=== PATIENT | female | born 2005 | race Caucasian/White ===

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

== ENCOUNTER 2024-11-23 13:02 | Emergency (ER) | payer OTHER, SELFPAY ==
--- NOTE | ~2024-11-23 | XR_ITS ---
EXAMINATION: XR ankle RT min 3V, 11/23/2024 13:00 CDT HISTORY: injury today, lateral. COMPARISON: No comparisons available. Findings: No acute fracture or malalignment. No significant degenerative changes. Soft tissues unremarkable. Impression: No acute fracture or malalignment. Reviewed, dictated and finalized at location A. Impression: No acute fracture or malalignment.
[2024-11-23 13:08] VITALS: BP 153/77; PULSE 86; RESP 20; TEMP 36.8; O2SAT 100
--- OUTSIDE RECORDS SUMMARY | 2024-11-23 13:28 | XMS_ITS | Clinical Summary ---
Author Organization [address] Address [address] [place] [facility] [address] Care Team Providers Care Window Sash Installer Name Role Phone Unknown, Notinfile Primary Care Provider Unavail able Eddi Avila MD Unavailable [phone] Allergies Active Allergy Reactions Criticality Noted Date Comments Penicillins Rash Medium 05/04/2019 Medications imiquimod (ALDARA) 5 % cream Apply topically 3 (three) times a week. Wash hands prior to and following application. 12 packet 8 Active norethindrone ac-eth estradioL (MICROGESTIN 03/23) 1-20 mg-mcg per tablet Take 1 tablet by mouth daily Active Active Problems Problem Noted Date Diagnosed Date Strain of left shoulder 06/13/2021 Anxiety 04/10/2019 Plantar wart 12/30/2017 Encounter for routine child health examination without abnormal findings 10/04/2017 Acute suppurative otitis med ia of left ear without spontaneous rupture of tympanic membrane 01/28/2017 Bronchospasm 07/13/2016 Overview (07/27/2016): Bronchospasm Immunizations Immunization Administration Dates Next Due DTaP 2003,2003,2003 DTaP 5 Pertussis 11/25/2007,04/13/2004 HPV, Quadrivalent 04/22/2015,12/20/2014,10/21/19 15 Hep B, Adolescent or Pediatric 2003,2002,2003 HiB 04/13/2004, 4,2003, 004 IPV 11/25/2007, 5,2003, 004 MMR 11/25/2007,01/14/2004 Meningococcal Conjugate (Menveo) 12/08/2020 Meningococcal MCV4P (Menactra) 10/20/2014 Pneumococcal Conjugate, Unspecified 04/04,01/14/2004,2003, 004 Tdap 10/20/2014 Varicella 11/25/2007,01/14/2004 Family History Medical History Relation Name Comments Psoriasis Mother Family history of psoriasis - (Added by TW Conv) Relation Name Status Comments Mother Social History Tobacco Use Types Packs/Day Years Used Date Smoking Tobacco: Never Smokeless Tobacco: Never Tobacco Cessation:Counseling Given: Not Answered Comments Unknown Sex and Gender Information Value Date Recorded Sex Assigned at Not on file Legal Sex Female 10:09 AM MICROARRAY ANALYST Gender Identity Not on file Sexual Orientation Not on file Obstetrics History Last Filed Vital Signs Vital Sign Reading Time Taken Comments Blood Pressure 92/64 02/05/2022 6:39 PM MICROARRAY ANALYST Pulse 75 02/05/2022 6:39 PM MICROARRAY ANALYST Temperature 36.4 C (97.6 F) 02/05/2022 6:39 PM MICROARRAY ANALYST Respiratory Rate 16 02/05/2022 6:39 PM MICROARRAY ANALYST Oxygen Saturation 98% 02/05/2022 6:39 PM MICROARRAY ANALYST Inhaled Oxygen Concentration - - Weight 62.6 kg (138 lb) 02/05/2022 6:39 PM MICROARRAY ANALYST Height 175.3 cm (5' 9) 02/05/2022 6:39 PM MICROARRAY ANALYST Body Mass Index 20.38 02/05/2022 6:39 PM MICROARRAY ANALYST Plan of Treatment Health Maintenance Due Date Last Done Comments Cervical Cancer Screening 2003 Depression Screening 2003 Hepatitis C Screening 2003 Meningococcal B Vaccine (1 o f 2 - Standard) 2019 Regular Well Visit/Exam 18-64 01/24/2022 01/24/2021 DTaP/Tdap/Td Vaccine (7 - Td or Tdap) 10/20/2024 10/20/2014, 11/25/2007, 04/13/2004, Additional history exists Covid-19 Vaccine (4 - 2024-2 6 season) 2024 03/12/2021, 07/05/2020, 06/12/2020 Influenza Vaccine (#1) 2024 Hepatitis B Screening Completed 2003 , 2003, 2003 Pneumococcal vaccine <65 Completed 005, 01/14/2004, 2003, Additional history exists Varicella Vaccines Completed 11/25/2007, 01/14/2004 HPV Vaccines Completed 04/22/2015, 12/02, 10/20/2014 Meningococcal Vaccine Completed 12/08/2020, 015 Insurance [employer] Care Teams Window Sash Installer Relationship Specialty Start Date End Date Unknown, Notinfile PCP - General 02/05/22 Eddi Avila MD [address] [address] 02/05/22
--- OUTSIDE RECORDS SUMMARY | 2024-11-23 13:28 | XMS_ITS | Clinical Summary ---
Author Organization [facility] [employer] [place] Address [address] [address] Care Team Providers Care Deputy Administrator Name Role Phone Unavailable Primary Care Provider Unavailabl e Allergies Active Allergy Reactions Criticality Noted Date Comments Penicillins Rash Low 05/04/2019 Medications 1.5, 21, 1.5-30 mg-mcg tablet Take 1 Tablet by mouth daily. 03/17/2022 Active sertraline (ZOLOFT) 50 mg tabletIndication s:Mixed anxiety and depressive disorder Take 1 Tablet (50 mg) by mouth daily. 90 Tablet 3 08/26/2024 Active Active Problems Problem Noted Date Diagnosed Date Mixed anxiety and depressive disorder 06/19/2022 Encounters Date Type Department Care Team Description 11/17/2024 External Device Data [facility] Provider, Abstract 09/16/2024 External Device Data [facility] Provider, Abstract 09/16/2024 External Device Data [facility] Provider, Abstract 09/16/2024 External Device Data [facility] Provider, Abstract 09/15/2024 External Device Data [facility] Provider, Abstract 09/09/2024 Refill [facility] [place] [address] [place] [address] Karlee Hoang MD Mixed anxiety and depressive disorder 09/01/2024 External Device Data [facility] Provider, Abstract 08/26/2024 9:30 AM CDT Office Visit [facility] [place] [address] [place] [address] Karlee Hoang MD Mixed anxiety and depressive disorder from Last 3 Months Immunizations Immunization Administration Dates Next Due (ADACEL/BOOSTRIX)(10 YR UP) TDAP VACCINE, 0.5ML, IM 10/20/2014 (DAPTACEL)(6 WKS-6 YRS) DIPH THERIA, TETANUS TOXOIDS, AND ACCELLULAR PERTUSSIS VACCINE (DTAP), 0.5ML, IM 11/25/2007,04/13/2004 (GARDASIL)(9-45 YRS) HUMAN PAPILLOMAVIRUS VACCINE, TYPES 6, 11, 16, 18, QUADRIVALENT (4VHPV), 3 DOSE, IM 04/22/2015,12/20/2014,10/20/2014 (INFANRIX)(6 WKS-6 YRS) DIPT HERIA, TETANUS TOXOIDS, AND ACCELLULAR PERTUSSIS VACCINE (DTAP), 0.5 ML IM 2003,2003,2003 (IPOL)(6 WKS AND UP) POLIOVI MÓNICA VACCINE, INACTIVATED (IPV), 3 DOSE, SUBCUT OR IM 11/25/2007,04/13/2004,2003,03/04 (M-M-R II/PRIORIX)(12 MO UP) MEASLES, MUMPS AND RUBELLA VIRUS VACCINE, 0.5 ML IM/SUBCUT 11/25/2007,01/14/2004 (MENVEO)(1 VIAL/2 VIAL)(10-5 5 YRS/2 MOS-55 YRS) MENINGOCOCCAL ACYW OLIGOSACCHARIDE CONJUGATE VACCINE, (PF) IM 12/08/2020 (RECOMBIVAX HB/ENGERIX-B)(0- 19 YRS) HEPATITIS B VACCINE 5 MCG/0.5 ML OR 10 MCG/0.5 ML PED OR ADOL 3 DOSE (PF), IM 2003,2003,2003 (VARIVAX)(12 MOS UP)VARICELL A VIRUS VACCINE (PF) 0.5 ML, SUB CUT 11/25/2007,01/14/2004 HIB, Unspecified Formulation 04/13/2004, 2003,2003,03/04 Meningococcal Polysaccharide Vaccine SQ 10/21/19 15 Pneumococcal conjugate, unsp ecified formulation 04/13/2004,01/14/2004,2003,05/02 Family History Medical History Relation Name Comments No Known Problems Father No Known Problems Half-Brother Diabetes Maternal Grandfather Heart Attack Maternal Grandfather High Cholesterol Maternal Grandfather Hypertension Maternal Grandfather No Known Problems Maternal Grandmother No Known Problems Mother No Known Problems Paternal Grandfather No Known Problems Paternal Grandmother Relation Name Status Comments Father Alive Half-Brother Alive Maternal Grandfather Alive Maternal Grandmother Alive Mother Alive Paternal Grandfather Alive Paternal Grandmother Alive Social History Tobacco Use Types Packs/Day Years Used Date Smoking Tobacco: Never Smokeless Tobacco: Never Tobacco Cessation:Counseling Given: Not Answered Alcohol Use Standard Drinks/Week Comments Yes 0 (1 standard drink = 0.6 oz pur e alcohol) 2 per week Adolescent Education Answer Date Record ed Getting School Help Needed Not on file 10/07 Comments No Sex and Gender Information Value Date Recorded Sex Assigned at Not on file Legal Sex Female 10:26 AM MANAGER OF LEARNING Gender Identity Not on file Sexual Orientation Not on file Last Filed Vital Signs Vital Sign Reading Time Taken Comments Blood Pressure 98/68 08/26/2024 9:28 AM CDT Pulse 74 08/26/2024 9:28 AM CDT Temperature 35.9 C (96.6 F) 08/26/2024 9:28 AM CDT Respiratory Rate 20 08/26/2024 9:28 AM CDT Oxygen Saturation 98% 08/26/2024 9:28 AM CDT Inhaled Oxygen Concentration - - Weight 70.8 kg (156 lb) 08/26/2024 9:28 AM CDT Height 172.1 cm (5' 7.75) 08/26/2024 9:28 AM CD T Body Mass Index 23.9 08/26/2024 9:28 AM CDT Plan of Treatment Health Maintenance Due Date Last Done Comments CERVICAL CANCER SCREENING 01/13/2024 HPV/Cotest (21-29) 01/13/2024 PAP SMEAR 01/13/2024 CHLAMYDIA SCREENING (ANNUAL) 11-24 YEARS 06/13/2024 06/14/2023 INFLUENZA VACCINE (#1) 2024 DTAP/TDAP/TD VACCINES (7 - T d or Tdap) 10/20/2024 10/20/2014, 11/25/2007, 04/13/2004, Additional history exists HEPATITIS B VACCINES Completed 2003, 2003, 2003 HPV VACCINES Completed 04/22/2015, 12/02, 10/20/2014 Insurance * Guarantor: [employer] (C) Account Type Relation to Patient Date of Phone Billing Address Corporate Employer ATTN: KATE PARRY [id number] [address] [employer]
--- NOTE | 2024-11-23 13:42 | ED.LOWEXIN ---
HPI - Extremity Injury (Lower) General Chief Complaint: Extremity Injury, Lower Stated Complaint: right ankle injury Time Seen by Provider: 11/23/24 13:25 Source: patient and RN notes reviewed Mode of arrival: ambulatory Limitations: no limitations History of Present Illness HPI Narrative: 19-year-old female Presents Express Care complaining of injury to right ankle. Patient reports walking to class at her school when she accidentally rolled her right ankle. Patient denies any other falls or injuries. The patient denies any numbness or tingling. Patient says she was able to bear white after she injured her right ankle he went to class after rolling her ankle. Patient said she is limping due to the pain decided to get it checked out. Patient denies any significant past medical history. Related Data Allergies Allergy/AdvReac Type Severity Reaction Status Date / Time Penicillins Allergy Rash Verified 11/23/24 13:15 Review of Systems Review of Systems: CONSTITUTIONAL: Denies fever, chills, or sweats. EYES: Denies visual changes, redness, or discharge. ENT: Denies rhinorrhea, congestion, sore throat, or otalgia. CARDIOVASCULAR: Denies chest pain, palpitations, or edema. RESPIRATORY: Denies cough or dyspnea. GASTROINTESTINAL: Denies abdominal pain, nausea, vomiting, or diarrhea. GENITOURINARY: Denies dysuria or hematuria. SKIN: Denies rash, wound, or itching. MUSCULOSKELETAL: Denies back pain, joint pain, or myalgia. Positive for injury and swelling NEUROLOGIC: Denies headache, numbness, or weakness. PSYCHIATRIC: Denies anxiety or depression. All other systems reviewed are negative, except as documented in HPI. [facility] Past Medical History Medical History Anxiety Depression Surgical History Surgical History No significant past surgical history Family History Family History Other No significant family history Social History Social History Smoking status: Never smoker Second hand tobacco smoke exposure: No Alcohol intake: never Substance use: never Living arrangements: with family Occupation/Education: student Gender identity (if verbalized by the patient): Female Comments At the time of my signature, I reviewed and agree with the nursing past medical, surgical, social, and family history. There is no relevant family history pertinent to the patient complaint. Exam Narrative: GENERAL: This is a well-nourished, well-developed adult, in no apparent distress. They are non ill-appearing, nontoxic appearing. HEAD: normocephalic, atraumatic. EYES: Sclera clear/white. Vision is grossly intact. Conjunctiva normal. Extraocular movement intact. EARS: External ears normal Hearing grossly intact. NOSE: External nose normal THROAT: Mucous membranes moist NECK: Neck supple CARDIOVASCULAR: Regular rate and rhythm RESPIRATORY: Respiratory rate normal, respiratory effort nonlabored, no respiratory distress NEURO: awake, alert, and oriented to person, place and time. There were no obvious focal neurologic abnormalities. EXTREMITIES: Right ankle: No obvious deformity, injury, bruising, redness. Mild lateral swelling to ankle. Mild tenderness to full range of motion. Mild tenderness to palpation to lateral ankle. Capillary refill less than 3 seconds. Right pedal Pulse 2 +palpable. Normal sensation. Neurovascular status intact distal injury. Negative Leo's test. BACK: Nontender without deformity. Course Course Emergency Course: Portions of this record may have been created with voice recognition software Level of Care: Express Care Visit Vital Signs Vital signs: Vital Signs Temperature 98.2 F 11/23/24 13:08 Pulse Rate 86 11/23/24 13:08 Respiratory Rate 20 11/23/24 13:08 Blood Pressure 153/77 H 11/23/24 13:08 Pulse Oximetry 100 11/23/24 13:08 Oxygen Delivery Room Air 11/23/24 13:08 Temperature 98.2 F 11/23/24 13:08 Pulse Rate 86 11/23/24 13:08 Respiratory Rate 20 11/23/24 13:08 Blood Pressure 153/77 H 11/23/24 13:08 Pulse Oximetry 100 11/23/24 13:08 Oxygen Delivery Room Air 11/23/24 13:08 Reviewed MDM - Extremity Injury (Lower) MDM Narrative Medical decision making narrative: X-ray right ankle is negative for any fracture or acute findings. Patient likely has a mild ankle sprain. Patient given an Poncho wrap for support and compression. Offered crutches and patient declined. Discussed physical exam findings. Advised supportive measures and signs/symptoms to go to the ER. Pt is appropriate for outpt treatment and f/u. Differential Diagnosis Differential diagnosis: Likely ankle sprain and strain, ankle fracture and other (Foot fracture) Imaging Data Radiologist's impression: ITS Impressions Ankle X-Ray 11/23/24 13:31 Impression: No acute fracture or malalignment. Critical Care Time Critical Care Time Critical Care Time: No Discharge Plan Discharge Clinical Impression: Injury of ankle, right Qualifiers: Encounter type: initial encounter Qualified Code(s): S99.911A - Unspecified injury of right ankle, initial encounter Patient Disposition: Home Condition: Stable Instructions: Ankle Sprain (ED) Additional Instructions: The x-ray of your right ankle is negative for any fractures or acute findings. Rest and elevate the leg; bear weight as tolerated Apply ice 15-20 minute intervals several times a day Keep it wrapped with PONCHO or use a soft ankle splint You may take ibuprofen 600 mg to 800 mg every 6-8 hours. Do not exceed more than 800 mg of ibuprofen per dose. Do not exceed more than 3200 mg ibuprofen in a day. You may take up to 1000 mg Tylenol every 6-8 hours. Do not exceed 1000 mg per dose, do exceed more than 4000 mg of Tylenol in a day. Follow up with your primary care provider or orthopedist as needed in 1-2 weeks especially if pain persists. Patient Language: Jamaican Prescriptions: No Action methylprednisolone [Medrol (Rey)] 4 mg tablets,dose pack 4 mg PO DAILY Qty: 21 0RF Follow-up/Referrals: PHYSICIAN,OFFSHORE DIVER [Primary Care Provider, Internal Medicine] Gregor Lemus MD [Physician, Orthopedics] Time of Disposition: 13:40
== END 2024-11-23 13:45 | disposition home or self-care (01) ==
DX: S99.911A Unspecified injury of right ankle, initial encounter (principal); X50.9XXA Other and unspecified overexertion or strenuous movements or postures, initial encounter
CPT/HCPCS: 73610; 99213; G0463